=== PATIENT | male | born 1985 | race Caucasian/White ===

== ENCOUNTER 2016-12-03 14:38 | Emergency (ER) ==
[2016-12-03 14:48] VITALS: BP 163/115; TEMP 97.6; BMI 50.1
--- NOTE | 2016-12-03 15:11 | ED.PDOC ---
General ED Provider: Dr. AMANDA ESCALANTE Chief Complaint: Tooth Problem Stated Complaint: Bit into piece of candy last night and right upper rearmost molar boke. painful since. Time Seen by Physician: 15:09 Mode of Arrival: Walk-In Information Source: Patient Exam Limitations: No limitations Primary Care Provider: TERA BUSTILLOS Nursing and Triage Documentation Reviewed and Agree: Yes EENT Complaint Exam - Dental/Oral Complaint/Exam Mechanism of Injury: Trauma Onset/Duration: 1 day Symptoms Are: Still present Timing: Constant Initial Severity: Severe Current Severity: Moderate Character: Reports: Aching Aggravating: Reports: Chewing Alleviating: Reports: None Cardiac Risk Factors: Reports: Smoking Dental/Oral Surgical History: Reports: None Tooth Findings: Present: Dental fracture (right upper rearmost molar) Facial Swelling Present: No Bleeding Present: No Septal Hematoma: No Foreign Body Present: No Dysphagia Present: No Drooling Present: No Asymmetrical Tonsillar Swelling Present: No Uvula Midline: Yes Misty-tonsillar Fluctuence: No Trismus Present: No Palatal Petechiae Present: No Scarlatinaform Rash Present: No Differential Diagnoses: Fractured Tooth Review of Systems - Review Of Systems Constitutional: Reports: No symptoms Ears, Nose, Mouth, Throat: Reports: Mouth pain (right upper rearmost molar) Respiratory: Reports: No symptoms Cardiac: Reports: No symptoms Skin: Reports: No symptoms Neurological: Reports: No symptoms All Other Systems: Reviewed and Negative Past Medical History - Past Medical History Previously Healthy: Yes Endocrine: Reports: None Cardiovascular: Reports: None Respiratory: Reports: None Hematological: Reports: None Gastrointestinal: Reports: None Genitourinary: Reports: None Neuro/Psych: Reports: None Musculoskeletal: Reports: None Cancer: Reports: None - Surgical History General Surgical History: Reports: None - Family History Family History: Reports: Unknown - Social History Smoking Status: Current every day smoker, Heavy tobacco smoker Hx Substance Use: No Alcohol Screening: None Lives: With family - Immunizations Tetanus Shot up to Date: No Influenza Vaccine within 12 Months: No Pneumococcal Vaccine up to Date: No Physical Exam - Physical Exam Appearance: Well-appearing, Well-nourished Ill-appearing: None Pain Distress: Mild ENT: Ears normal, Nose normal, Oropharynx normal (right upper rearmost molar fractured posterior half missing. Very tender.) Neck: Supple Skin: Warm, Dry, Normal color Neurological: Sensation intact, Motor intact, Reflexes intact, Cranial nerves intact, Alert, Oriented Psychiatric: Affect appropriate, Mood appropriate Critical Care Note - Critical Care Note Total Time (mins): 0 Course - Course Vital Signs: Temp Pulse Resp BP Pulse Ox 12/03/16 14:39 97.6 F 90 20 163/115 H 96 Departure - Departure Time of Disposition: 15:18 Disposition: HOME SELF-CARE Discharge Problem: Tooth fracture Qualifiers: Encounter type: initial encounter Fracture type: closed Qualified Code(s): S02.5XXA - Fracture of tooth (traumatic), initial encounter for closed fracture Instructions: Toothache (ED) Condition: Good Pt referred to PMD for follow-up: No (Follow up with dentist JORDAN) Allergies/Adverse Reactions: Allergies No Known Allergies Allergy (Verified 12/03/16 14:47) Home Medications: Ambulatory Orders Acetaminophen with Codeine [Tylenol #3 Tab] 1 tab PO Q4H PRN #20 tablet Amoxicillin 875 mg PO BID #20 tablet 12/03/16 Disposition Discussed With: Patient, Family
== END 2016-12-03 15:25 | disposition home or self-care (01) ==
LOC: ED 14:38
DX: S02.5XXA Fracture of tooth (traumatic), initial encounter for closed fracture (principal)
CPT/HCPCS: 99282

== ENCOUNTER 2017-02-06 18:38 | Emergency (ER) ==
[2017-02-06 18:38] VITALS: BMI 50.1
[2017-02-06 18:45] VITALS: BP 150/97; TEMP 97.5
[2017-02-06] MEDS ORDERED: CARAFATE PO STA (19:13)
[2017-02-06] MEDS ORDERED: GI COCKTAIL PO STA (19:13)
--- NOTE | 2017-02-06 19:29 | ED.PDOC ---
General ED Provider: Dr. ALLISON EDUARDO Chief Complaint: Chest Pain Stated Complaint: Chest pain, left sided, suddenly started. had dinner, after sometime the pain started,. The pain resolved now. Time Seen by Physician: 19:27 Mode of Arrival: Walk-In Information Source: Patient Primary Care Provider: TERA BUSTILLOS Nursing and Triage Documentation Reviewed and Agree: Yes Cardiovascular Complaint Exam - Chest Pain Complaint/Exam Onset: Sudden Symptoms Are: Resolved Timing: Constant Initial Severity: Moderate Current Severity: None Location: Reports: Left lateral Pain Radiates: Reports: Back Character: Reports: Sharp Aggravating: Reports: None Alleviating: Reports: None Associated Signs and Symptoms: Denies: Diaphoresis, Nausea, Vomiting, Fever, Palpitations, Cough, Hemoptysis, Back pain, Abdominal pain, Dizziness, Short of air, Calf pain, Calf swelling Related History: Reports: Similar episode Related Surgical History: Reports: None History of Healthcare-Acquired Pneumonia: Reports: No AMI/ACS Risk Factors: Reports: None TAD Risk Factors: Reports: None Pulmonary Embolism Risk Factors: Reports: None Prior Care for this Complaint: No Recent Stress Test: No Recent Echo/LV Function: No JVD Present: No Subcutaneous Emphysema Present: No Diminshed Breath Sounds: No Reproducible Chest Wall Pain: Yes Bilateral Pulses Present: No Unequal Pulses Noted: No If Risk Factors for AMI/ACS Consider: EKG, Cardiac Enzymes, Serial Studies, Oxygen Differential Diagnoses: ACS, Stable Angina, GI Diseasae Quality Indicators For Acute [place] or Cardiac Chest Pain: EKG in 10min. Review of Systems - Review Of Systems Constitutional: Reports: No symptoms Eyes: Reports: No symptoms Ears, Nose, Mouth, Throat: Reports: No symptoms Respiratory: Reports: No symptoms Cardiac: Reports: Chest pain GI: Reports: No symptoms : Reports: No symptoms Musculoskeletal: Reports: No symptoms Skin: Reports: No symptoms Neurological: Reports: No symptoms Endocrine: Reports: No symptoms Hematologic/Lymphatic: Reports: No symptoms All Other Systems: Reviewed and Negative Past Medical History - Past Medical History Previously Healthy: Yes Endocrine: Reports: None Cardiovascular: Reports: Hypertension Respiratory: Reports: None Hematological: Reports: None Gastrointestinal: Reports: None Genitourinary: Reports: None Neuro/Psych: Reports: None Musculoskeletal: Reports: None Cancer: Reports: None - Surgical History General Surgical History: Reports: None - Family History Family History: Reports: Unknown - Social History Smoking Status: Current every day smoker, Heavy tobacco smoker Smoking Cessation Counseling Time: > 10 min Hx Substance Use: No Alcohol Screening: None - Immunizations Influenza Vaccine within 12 Months: No Pneumococcal Vaccine up to Date: No Physical Exam - Physical Exam Appearance: Well-appearing, Obese Eyes: LJ, EOMI, Conjunctiva clear ENT: Ears normal, Nose normal, Oropharynx normal Respiratory: Airway patent, Breath sounds clear, Breath sounds equal, Respirations nonlabored Cardiovascular: RRR, Pulses normal, No rub, No murmur GI/: Soft, Nontender, No masses, Bowel sounds normal, No Organomegaly Musculoskeletal: Normal strength, ROM intact, No edema, No calf tenderness Skin: Warm, Dry, Normal color Neurological: Sensation intact, Motor intact, Reflexes intact, Cranial nerves intact, Alert, Oriented Psychiatric: Affect appropriate, Mood appropriate Interpretation - Radiology Interpretation Radiology Interpretation By: ED Physician Radiology Results: Negative Exam Interpreted: CXR - EKG Interpretation Time of EKG #1: 07:15 Rate: Normal Rhythm: Sinus Ectopy: None Critical Care Note - Critical Care Note Total Time (mins): 20 Course - Course Hematology/Chemistry: 02/06/17 19:25 02/06/17 19:25 Orders, Labs, Meds: Lab Review 02/06/17 02/06/17 19:25 19:25 WBC 11.02 H RBC 4.85 Hgb 15.1 Hct 43.9 MCV 90.5 MCH 31.1 H MCHC 34.4 RDW Coeff of [place] 13.6 Plt Count 286 Immature Gran % (Auto) 0.4 Neut % (Auto) 63.0 Lymph % (Auto) 29.1 Geary % (Auto) 5.6 Eos % (Auto) 1.5 Baso % (Auto) 0.4 Immature Gran # (Auto) 0.0 Neut # 6.9 Lymph # 3.2 Geary # 0.6 Eos # 0.2 Baso # 0.0 Sodium 144 Potassium 3.8 Chloride 108 H Carbon Dioxide 26 Anion Gap 13.8 BUN 13 Creatinine 0.84 Estimated GFR (MDRD) 105.00 BUN/Creatinine Ratio 15.47 Glucose 96 Calcium 9.7 Total Bilirubin < 0.3 AST 25 ALT 34 Alkaline Phosphatase 69 Total Creatine Kinase 131 CK-MB (CK-2) 1.5 CK-MB (CK-2) % 1.98534 Troponin I < 0.0100 Total Protein 7.5 Albumin 3.7 Globulin 3.8 Albumin/Globulin Ratio 0.97 Amylase 53 Lipase 53 Orders Category Date Time Status EKG-(ED ONLY) Stat CARDIO 02/06/17 19:33 Ordered AMYLASE Stat LAB 02/06/17 19:25 Completed CBC W/ AUTO DIFF Stat LAB 02/06/17 19:25 Completed COMPREHENSIVE METABOLIC PANEL Stat LAB 02/06/17 19:25 Completed CREATINE KINASE Stat LAB 02/06/17 19:25 Completed LIPASE Stat LAB 02/06/17 19:25 Completed TROPONIN I Stat LAB 02/06/17 19:25 Completed Mag-Al Plus//Lidocaine [Gi Cocktail] MEDS 02/06/17 19:13 Discontinued 30 ml PO ONCE STA Sucralfate Susp [Carafate] MEDS 02/06/17 19:13 Discontinued 1 gm PO ONCE STA CHEST, 2 VIEWS PA & LAT Stat RADS 02/06/17 19:14 Taken Medications Discontinued Medications Generic Name Dose Route Start Last Admin Trade Name Freq PRN Reason Stop Dose Admin Al Hydroxide/Mg Hydroxide 30 ml 02/06/17 19:13 02/06/17 19:28 Gi Cocktail PO 02/06/17 19:14 30 ml ONCE STA Administration Sucralfate 1 gm 02/06/17 19:13 02/06/17 19:28 Carafate PO 02/06/17 19:14 1 gm ONCE STA Administration Vital Signs: Temp Pulse Resp BP Pulse Ox 02/06/17 18:40 97.5 F L 89 20 150/97 H 99 NAKUL Risk Score NAKUL Risk Score: Risk Score Odds of by 30D 0 0.1 (0.1-0.2) 1 0.3 (0.2-0.3) 2 0.4 (0.3-0.5) 3 0.7 (0.6-0.9) 4 1.2 (1.0-1.5) 5 2.2 (1.9-2.6) 6 3.0 (2.5-3.6) 7 4.8 (3.8-6.1) Departure - Departure Time of Disposition: 20:26 Disposition: HOME SELF-CARE Discharge Problem: Chest pain Instructions: Peptic Ulcer (ED) Condition: Good Pt referred to PMD for follow-up: Yes Additional Instructions: No spicy food No fried food F/u with PMD Prescriptions: Sucralfate Susp [Carafate] 1 gm PO ACHS #1 bottle Allergies/Adverse Reactions: Allergies No Known Allergies Allergy (Verified 02/06/17 18:50) Home Medications: Ambulatory Orders Sucralfate Susp [Carafate] 1 gm PO ACHS #1 bottle 02/06/17 Disposition Discussed With: Patient, Family
[2017-02-06 19:33] LABS: BASOPHILS % (AUTO) 0.4 % (0.0-3.0); EOSINOPHILS # (AUTO) 0.2 K/ul (0.0-0.7); EOSINOPHILS % (AUTO) 1.5 % (0.0-7.0); HEMATOCRIT 43.9 % (42.0-52.0); HEMOGLOBIN 15.1 g/dl (14.0-18.0); IMMATURE GRANULOCYTE % (AUTO) 0.4 % (0.0-5.0); LYMPHOCYTES # (AUTO) 3.2 K/uL (0.60-3.4); LYMPHOCYTES % (AUTO) 29.1 (10.0-50.0); MEAN CORPUSCULAR HEMOGLOBIN 31.1 pg (27.0-31.0); MEAN CORPUSCULAR HGB CONC 34.4 (31.8-35.4); MEAN CORPUSCULAR VOLUME 90.5 fl (80.0-94.0); MONOCYTES # (AUTO) 0.6 K/uL (0.4-2.0); MONOCYTES % (AUTO) 5.6 (0-10); NEUTROPHILS # (AUTO) 6.9 K/ul (2.0-6.9); PLATELET COUNT 286 10^3/uL (140-440); RED BLOOD COUNT 4.85 10^6/ul (4.70-6.10); WHITE BLOOD COUNT 11.02 K/ul (4.2-10.2)
[2017-02-06 20:09] LABS: ALANINE AMINOTRANSFERASE 34 U/L (12-78); ALBUMIN 3.7 g/dL (3.4-5.0); ALBUMIN/GLOBULIN RATIO 0.97; ALKALINE PHOSPHATASE 69 U/L (50-136); AMYLASE 53 U/L (25-115); ANION GAP 13.8; ASPARTATE AMINO TRANSFERASE 25 U/L (15-37); BLOOD UREA NITROGEN 13 mg/dL (7-18); BUN/CREATININE RATIO 15.47; CALCIUM 9.7 mg/dL (8.2-10.2); CARBON DIOXIDE 26 mmol/L (21-32); CHLORIDE 108 mmol/L (98-107); CREATINE KINASE 131 U/L; CREATININE 0.84 mg/dL (0.60-1.10); GLUCOSE 96 mg/dL (70-100); LIPASE 53 U/L (8-78); POTASSIUM 3.8 mmol/L (3.5-5.1); SODIUM 144 mmol/L (136-145); TOTAL PROTEIN 7.5 g/dL (6.4-8.2)
[2017-02-06 20:11] LABS: BILIRUBIN,TOTAL < 0.3 mg/dL (0.00-1.20)
[2017-02-06 20:12] LABS: CREATINE KINASE MB 1.5 ng/ml (0.0-3.6)
--- NOTE | 2017-02-06 22:09 | DI ---
EXAM: Chest two views HISTORY: Chest pain COMPARISON: None TECHNIQUE: Two views of the chest were performed FINDINGS: The lungs are clear. There is no pleural effusion or pneumothorax. The heart is normal i n size. The mediastinal contour is normal. There are no acute abnormalities of the bones. IMPRESSION: No acute cardiopulmonary process.
== END 2017-02-06 20:30 | disposition home or self-care (01) ==
LOC: ED 18:38
DX: R07.9 Chest pain, unspecified (principal); I10 Essential (primary) hypertension; F17.210 Nicotine dependence, cigarettes, uncomplicated
CPT/HCPCS: 36415; 80053; 82150; 82550; 82553; 83690; 84484; 85025; 93005; 93010; 99283

== ENCOUNTER 2018-03-06 09:33 | Emergency (ER) ==
[2018-03-06 09:40] VITALS: BP 162/98; TEMP 98; BMI 50.0
--- NOTE | 2018-03-06 09:56 | ED.PDOC ---
General ED Provider: Dr. TERA NEAL Chief Complaint: Shoulder Pain/Injury Stated Complaint: CC: pain in the right shoulder. Patient stated he picked up a 50# bag of dog food, and heard pop in the right shoulder after which he had an onse of pain. He stated any time he tries to move the right arm he feels grinding in the shoulder joint Time Seen by Physician: 09:50 Mode of Arrival: Walk-In Information Source: Patient Exam Limitations: No limitations Primary Care Provider: TERA BUSTILLOS Nursing and Triage Documentation Reviewed and Agree: Yes Does patient meet sepsis criteria?: No System Inflammatory Response Syndrome: Not Applicable Sepsis Protocol: For patient's 13 years and over: Temp is 96.8 and below OR 101 and greater Pulse >90 BPM Resp >20/minute Acutely Altered Mental Status Are patient's symptoms suggestive of a new infection, such as: -Pneumonia -Skin, Soft Tissue -Endocarditis -UTI -Bone, Joint Infection -Implantable Device -Acute Abdominal Infection -Wound Infection -Meningitis -Blood Stream Catheter Infection -Unknown Musculoskeletal Complaint Exam - Shoulder Pain Complaint/Exam Onset/Duration: 24 hrs Symptoms Are: Worse Timing: Constant Initial Severity: Moderate Current Severity: Moderate Location: Reports: Diffuse (Rt Shoulder) Character: Reports: Sharp, Aching Aggravating: Reports: Movement, Flexion, Extension, Abduction Associated Signs and Symptoms: Denies: Swelling, Redness, Bruising, Fever, Weakness, Numbness, Tingling Related History: Denies: Similar episode Non-Orthopedic Risk Factors: Reports: None DVT Risk Factors: Reports: None Septic Arthritis Risk Factors: Reports: None Related Surgical History: Reports: None Shoulder Findings: Present: Swelling Tenderness: Present: AC joint (Rt) Limited Range of Motion: Present: Abduction, Flexion, External rotation Shoulder Picture: 1 - Pain over Rt AC Joint Differential Diagnoses: AC Seperation, Rotator Cuff Injury, Sprain Review of Systems - Review Of Systems Constitutional: Reports: No symptoms Eyes: Reports: No symptoms Ears, Nose, Mouth, Throat: Reports: No symptoms Respiratory: Reports: No symptoms Cardiac: Reports: No symptoms GI: Reports: No symptoms : Reports: No symptoms Musculoskeletal: Reports: No symptoms Skin: Reports: No symptoms Neurological: Reports: No symptoms Endocrine: Reports: No symptoms Hematologic/Lymphatic: Reports: No symptoms All Other Systems: Reviewed and Negative Past Medical History - Past Medical History Previously Healthy: Yes Endocrine: Reports: None Cardiovascular: Reports: Hypertension Respiratory: Reports: None Hematological: Reports: None Gastrointestinal: Reports: None Genitourinary: Reports: None Neuro/Psych: Reports: None Musculoskeletal: Reports: Joint Pain Cancer: Reports: None - Surgical History General Surgical History: Reports: None - Family History Family History: Reports: Unknown - Social History Smoking Status: Current every day smoker, Heavy tobacco smoker Hx Substance Use: No Alcohol Screening: None - Immunizations Tetanus Shot up to Date: No Influenza Vaccine within 12 Months: No Pneumococcal Vaccine up to Date: No Physical Exam - Physical Exam Appearance: Well-appearing, No pain distress, Well-nourished, Obese Ill-appearing: None Pain Distress: Moderate Eyes: LJ, EOMI, Conjunctiva clear ENT: Ears normal, Nose normal, Oropharynx normal Respiratory: Airway patent, Breath sounds clear, Breath sounds equal, Respirations nonlabored Cardiovascular: RRR, Pulses normal, No rub, No murmur GI/: Soft, Nontender, No masses, Bowel sounds normal, No Organomegaly Musculoskeletal: Normal strength, ROM intact, No edema, No calf tenderness, Limited ROM (Rt Shoulder), Limited strength (Rt Shoulder) Skin: Warm, Dry, Normal color Neurological: Sensation intact, Motor intact, Reflexes intact, Cranial nerves intact, Alert, Oriented Psychiatric: Affect appropriate, Mood appropriate Critical Care Note - Critical Care Note Total Time (mins): 30 Course - Course Orders, Labs, Meds: Orders Category Date Time Status Ketorolac Tromethamine [Toradol] MEDS 03/06/18 10:07 Discontinued 30 mg IM ONCE STA CT SHOULDER RIGHT W/O CONTRAST Stat RADS 03/06/18 10:07 Completed Medications Discontinued Medications Generic Name Dose Route Start Last Admin Trade Name Freddieq PRN Reason Stop Dose Admin Ketorolac Tromethamine 30 mg 03/06/18 10:07 03/06/18 10:27 Toradol IM 03/06/18 10:08 30 mg ONCE STA Administration Vital Signs: Temp Pulse Resp BP Pulse Ox 03/06/18 09:35 98.0 F 89 20 162/98 H 98 Departure - Departure Time of Disposition: 11:15 Disposition: HOME SELF-CARE Discharge Problem: Right shoulder strain, Acromioclavicular joint arthritis Discharge Problem: (Ruled Out): Left shoulder strain Instructions: Rotator Cuff Injury (ED), Osteoarthritis (ED) Condition: Good Pt referred to PMD for follow-up: Yes (See PCP in next 7 days) IPMP verified?: No Additional Instructions: Avoid strenuous activity involving rt shoulder May take Ibuprofen 600 mg every 6 hrs as needed Apply ice to area of discomomfort for 20 minutes three times daily See PCP or self referral to orthopedic surgeon Allergies/Adverse Reactions: Allergies No Known Allergies Allergy (Verified 02/06/17 18:50) Home Medications: Ambulatory Orders 1 [No Reported Medications] 03/06/18 Disposition Discussed With: Patient
[2018-03-06] MEDS ORDERED: TORADOL IM STA (10:07)
--- NOTE | 2018-03-06 11:13 | CT ---
EXAM: CT of the right shoulder without contrast History: Pain of the right acromioclavicular joint. Technique: Multiplanar CT images through the right shoulder were obtained without the administration of IV contrast Findings: The visualized right lung is clear. Surrounding soft tissues demonstrate no acute finding s. No acute fracture or dislocation. Mild to moderate narrowing of the right AC joint and mild narrowin g of the right glenohumeral joint. No destructive osseous changes. No suspicious lytic or blastic o sseous lesions. Impression: 1. No acute osseous abnormality. 2. Mild to moderate arthritis of the right AC joint and mild arthritis of the right glenohumeral dmitry nt.
== END 2018-03-06 12:15 | disposition home or self-care (01) ==
LOC: ED 09:33
DX: S46.911A Strain of unspecified muscle, fascia and tendon at shoulder and upper arm level, right arm, initial encounter (principal); M19.019 Primary osteoarthritis, unspecified shoulder; X50.0XXA Overexertion from strenuous movement or load, initial encounter; F17.210 Nicotine dependence, cigarettes, uncomplicated
CPT/HCPCS: 96372; 99283